=== PATIENT | female | born 1985 | race Caucasian/White ===

== ENCOUNTER → 2017-12-01 | Day surgery (SDC) | payer OTHER ==
[~2017-12-01] MED LIST: ACETAMINOPHEN 1000 MG/100 ML 100 ML IV ONE; BUPIVACAINE HCL 0.5% INJ 30 ML VIAL INJ ONE; CLINDAMYCIN PHOS 900MG/ D5W 50 50 ML IV ONE; DEXAMETHASONE SOD PHOS INJ 4 MG/ML VIAL ONE; FENTANYL CITRATE/PF 100MCG/2 ML INJ ONE; HYDROCODON-ACE1 EA12 PO; KETOROLAC TROMETHAMINE 30 MG/ML VIAL ONE; LEXAPRO5 MG PO; LIDOCAINE HCL 2% LOCAL INJ 5 ML SDV VIAL INJ ONE; MIDAZOLAM HCL 2 MG/2 ML VIAL ONE; MUPIROCIN 2% OINT 22 GM TUBE ONE; ONDANSETRON HCL INJ 2 MG/ML VIAL ONE; PROPOFOL IV EMULSION 10 MG/ML 20 ML VIAL ONE; SEVOFLURANE INHAL SOLN 250 ML PEN BTL ONE; ZOLPIDEM TARTRAT5 MG PO; [UNRECOGNIZED DRUG - OTHER] PO
--- NOTE | 2017-12-01 10:08 | Operative Report ---
DATE OF PROCEDURE: December 01, 2017 INSPECTOR PUBLICATIONS: Alpesh Haynes PA-C The patient was brought to the operating room for induction of anesthesia. Throughout this case, my PA's assistance was necessary for retraction of soft tissue and positioning of the extremity. This allows for efficient and technically successful execution of the operation and is considered medically necessary. PREOPERATIVE DIAGNOSIS: Complications pertaining to internal fixation, left ankle. POSTOPERATIVE DIAGNOSIS: Complications pertaining to internal fixation, left ankle. PROCEDURE: Hardware removal, left ankle. INDICATIONS: The patient is a 32-year-old lady who is status post ORIF of her left ankle. The fracture has gone on to heal. The hardware this bothering her. She would like to have it removed. The risks and benefits of hardware removal were explained. She states she understands and wishes to proceed. DESCRIPTION OF PROCEDURE: The patient was brought to the operating room and placed under general anesthetic. She received prophylactic antibiotics in the holding area. Her left lower extremity was prepped and draped in a sterile manner. A preoperative time out was performed. The extremity was exsanguinated and a proximal tourniquet was briefly inflated to 300 mmHg. Initial attention was directed towards the lateral aspect of the ankle. A portion of the incision was opened up. The hardware was carefully exposed. All of the screws were carefully removed without any difficulties. The plate was fully removed. The screw holes were gently curetted. The wound was irrigated and closed with subcuticular Vicryl and nylon stitches. Half percent Marcaine without epinephrine was injected around the incision. The distal portion of the medial incision was then opened up. A C-arm image intensifier was used to assist in localizing the head of the partially threaded cancellous screw. This was then removed as well. A final x-ray confirmed full hardware removal. The medial incision was irrigated and closed. A sterile bandage was applied. The patient was extubated and transported to the recovery room in stable condition. There was no blood loss. All needle and sponge counts were correct. Job#: [id number]
== END | disposition home or self-care (01) ==
LOC: OR 06:06
PROVIDERS: ATTEND Specialist
DX: T84.84XA Pain due to internal orthopedic prosthetic devices, implants and grafts, initial encounter (principal); M25.572 Pain in left ankle and joints of left foot; F41.9 Anxiety disorder, unspecified; Z88.1 Allergy status to other antibiotic agents
CPT/HCPCS: 20680; 76000; 81025; J1100; J1885; J2001; J2250; J2405